=== PATIENT | female | born 1970 | race American Indian/Alaskan Native ===

== ENCOUNTER 2018-11-13 13:17 | Emergency (ER) | payer OTHER ==
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
[2018-11-13] MEDS ORDERED: IBUPROFEN PO ONE (19:57)
[2018-11-13] MEDS ORDERED: FLEXERIL PO ONE (19:57)
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
[2018-11-13 20:32] VITALS: BP 196/106
== END 2018-11-13 20:33 | disposition home or self-care (01) ==
LOC: ED 13:17
DX: S39.012A Strain of muscle, fascia and tendon of lower back, initial encounter (principal); I10 Essential (primary) hypertension; Z79.899 Other long term (current) drug therapy; Z79.1 Long term (current) use of non-steroidal anti-inflammatories (NSAID); Z90.49 Acquired absence of other specified parts of digestive tract; V89.2XXA Person injured in unspecified motor-vehicle accident, traffic, initial encounter; Y93.89 Activity, other specified; Y92.488 Other paved roadways as the place of occurrence of the external cause; Y99.8 Other external cause status
CPT/HCPCS: 72131; 99283

== ENCOUNTER 2019-02-16 19:52 | Emergency (ER) | payer SELFPAY ==
--- NOTE | 2019-02-16 21:55 | Event Note ---
ED Screening Note Date of service: 02/16/19 Time: 21:51 ED Screening Note: This initial assessment/diagnostic orders/clinical plan/treatment(s) is/are subject to change based on patients health status, clinical progression and re- assessment by fellow clinical providers in the ED. Further treatment and workup at subsequent clinical providers discretion. Patient/guardian urged not to elope from the ED as their condition may be serious if not clinically assessed and managed. 48 yo female c/o abd. pain nausea vomiting x 3 days. She reports subjective fever. Denies urinary symptoms. Hx of tubal ligation and appendectomy. Initial orders include: cbc cmp lipase ua
[2019-02-16 22:20] LABS: Basophils % (Auto) 0.4 % (0.0-1.8); Eosinophils # (Auto) 0.1 K/mm3 (0.0-0.4); Eosinophils % (Auto) 1.1 % (0.0-4.3); Hematocrit 35.3 % (30.3-42.9); Hemoglobin 11.7 gm/dl (10.1-14.3); Lymphocytes # (Auto) 1.3 K/mm3 (1.2-5.4); Lymphocytes % (Auto) 14.8 % (13.4-35.0); Mean Corpuscular HGB Conc 33 % (30-34); Mean Corpuscular Volume 94 fl (79-97); Monocytes % (Auto) 11.5 % (0.0-7.3); Platelet Count 279 K/mm3 (140-440); Red Blood Count 3.76 M/mm3 (3.65-5.03); Red Cell Distribution Width 14.3 % (13.2-15.2)
[2019-02-16 22:44] LABS: Alanine Aminotransferase 11 units/L (7-56); Albumin 3.5 g/dL (3.9-5); BUN/Creatinine Ratio 10; Blood Urea Nitrogen 7 mg/dL (7-17); Calcium 8.9 mg/dL (8.4-10.2); Hemolysis Index 22
[2019-02-16 22:55] LABS: Bacteria,Urine 2+ /HPF (Negative); Bilirubin,Urine NEG (Negative); Blood,Urine MOD (Negative); Color,Urine Yellow (Yellow); Mucus,Urine FEW /HPF; Protein,Urine <15 mg/dL mg/dL (Negative)
[2019-02-16 22:56] LABS: WBC,Urine > 182.0 /HPF (0.0-6.0)
[2019-02-17] MEDS ORDERED: cefTRIAXone/NS 1 GM/50 ML 1 GM/50 ML BAG IV ONE (00:13)
[2019-02-17] MEDS ORDERED: MORPHINE 4 MG/1 ML INJ IV ONE (00:13)
[2019-02-17] MEDS ORDERED: FAMOTIDINE 20 MG/2 ML INJ IV ONE (00:13)
[2019-02-17] MEDS ORDERED: ONDANSETRON 4 MG/2 ML INJ IV ONE (00:13)
[2019-02-17] MEDS ORDERED: SODIUM CHLORIDE 0.9% 1000 ML 1,000 ML IV ONE (00:15)
--- NOTE | 2019-02-17 02:04 | Cat Scan Report ---
CT ABDOMEN AND PELVIS WITH IV CONTRAST INDICATION: abdominal pain. COMPARISON: None available. TECHNIQUE: Axial CT images were obtained through the abdomen and pelvis after [address] scans at t his location are performed using CT dose reduction for ALARA by means of automated exposure control. FINDINGS -- ABDOMEN: Lung Bases: No acute abnormality. Liver: Normal. Gallbladder: Normal. Bile Ducts: Normal. Pancreas: Normal. Spleen: Normal. Adrenals: Normal. Right Kidney and Proximal Ureter: Abnormal enhancement pattern with significant urothelial enhancemen t throughout the right ureter.. Left Kidney and Proximal Ureter: Nonobstructive nephrolithiasis. Ill-defined hypodensities throughout much of the left mid kidney.. Stomach and Bowel: Normal. Lymph Nodes: No significant adenopathy. Aorta: No significant abnormality. IVC: Normal. Additional Findings: None. FINDINGS -- PELVIS: Urinary Bladder and Distal Ureters: Normal. Reproductive Organs: No acute abnormality. Appendix: Normal. Bowel: No acute abnormality. Diverticulosis. Free Fluid: None. Lymph Nodes: No significant adenopathy. Additional Findings: None. Skeletal System: No acute abnormality. IMPRESSION: Findings concerning for early bilateral hilar nephritis with inflammation of both ureters. No abscess appreciated at this time. Colonic diverticulosis without diverticulitis. Signer Name: Saul Tate MD Signed: 02/17/2019 1:59 AM Workstation Name: [id number]
--- NOTE | 2019-02-17 03:23 | Emergency Department Report ---
ED Abdominal Pain HPI - General Chief Complaint: Abdominal Pain Stated Complaint: N,V, LIGHT HEADED, BLOOD IN URINE, FEVER Time Seen by Provider: 02/16/19 21:49 Source: patient Mode of arrival: Ambulatory Limitations: No Limitations - History of Present Illness Initial Comments: Patient is a 48-year-old -Spanish female with a history of hypertension who presents to the ED with complaint of acute onset persistent epigastric pain that radiates to the right upper quadrant and right flank area with nausea and vomiting for the last 5 days worse in the last 2 days. Patient also complains of subjective fever and chills with lack of appetite and hematuria. Patient also complains of dysuria, urinary frequency and urgency and suprapubic pressure . Patient denies chest pain, shortness of breath, dizziness, syncope, neck pain, headache, diarrhea, vaginal discharge, low back pain and palpitation. MD Complaint: abdominal pain, flank pain (right), other (nausea and vomiting; hematuria) -: Sudden, days(s) (5) Location: RUQ, epigastric, R flank Radiation: RUQ, epigastric, R flank Migration to: no migration Severity scale (0 -10): 8 Quality: aching, sharp Consistency: constant Improves With: nothing Worsens With: vomiting Associated Symptoms: denies other symptoms, nausea, vomiting, fever, chills, anorexia. denies: diarrhea, constipation, dysuria, hematemesis, hematochezia, hematuria, other Treatments Prior to Arrival: NSAIDs - Related Data Home Medications Medication Instructions Recorded Confirmed Last Taken Ferrous Sulfate [Feosol] 325 mg PO BID 08/06/15 08/06/15 08/05/15 Losartan/Hydrochlorothiazide 1 tab PO QDAY 08/06/15 08/06/15 08/05/15 [Hyzaar 100-25 TAB] Previous Rx's Medication Instructions Recorded Last Taken Type Cyclobenzaprine HCl [Flexeril 5 MG 5 mg PO Q8HR PRN #10 tab 08/06/15 Unknown Rx TAB] Ibuprofen [Motrin] 800 mg PO Q8HR PRN #10 tablet 08/06/15 Unknown Rx Cyclobenzaprine [Flexeril] 10 mg PO QHS PRN #10 tablet 11/13/18 Unknown Rx Ibuprofen [Motrin] 600 mg PO Q8H PRN #20 tablet 08/28/19 Unknown Rx Famotidine [Pepcid] 40 mg PO DAILY #30 tablet 02/17/19 Unknown Rx Ibuprofen [Motrin] 800 mg PO Q8HR PRN #24 tablet 02/17/19 Unknown Rx Promethazine [Phenergan] 25 mg PO Q6HR PRN #24 tab 02/17/19 Unknown Rx levoFLOXacin [Levaquin TAB] 500 mg PO QDAY #10 tablet 02/17/19 Unknown Rx traMADoL [Ultram] 50 mg PO Q4HR PRN #12 tablet 02/17/19 Unknown Rx Allergies Allergy/AdvReac Type Severity Reaction Status Date / Time No Known Allergies Allergy Verified 08/06/15 00:05 ED Review of Systems ROS: Stated complaint: N,V, LIGHT HEADED, BLOOD IN URINE, FEVER Other details as noted in HPI Constitutional: denies: chills, fever Eyes: denies: eye pain, eye discharge, vision change ENT: denies: ear pain, throat pain Respiratory: denies: cough, shortness of breath, wheezing Cardiovascular: denies: chest pain, palpitations Endocrine: no symptoms reported Gastrointestinal: abdominal pain (right flank, right upper quadrant and epigastric pain), nausea, vomiting. denies: diarrhea Genitourinary: denies: urgency, dysuria, frequency, discharge Musculoskeletal: back pain. 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) Hx Heart Attack/AMI: Yes (x1) Additional medical history: Iron Deficiency Anemia - Surgical History Past Surgical History?: Yes Hx Cholecystectomy: Yes Hx Appendectomy: Yes Additional Surgical History: HYST, Cardiac Cath, Colonoscopy, Fibroid Removal, Abdominal surgery with Mesh placement - Social History Smoking Status: Never Smoker Substance Use Type: None - Medications Home Medications: Home Medications Medication Instructions Recorded Confirmed Last Taken Type Cyclobenzaprine HCl [Flexeril 5 MG 5 mg PO Q8HR PRN #10 tab 08/06/15 Unknown Rx TAB] Ferrous Sulfate [Feosol] 325 mg PO BID 08/06/15 08/06/15 08/05/15 History Ibuprofen [Motrin] 800 mg PO Q8HR PRN #10 tablet 08/06/15 Unknown Rx Losartan/Hydrochlorothiazide 1 tab PO QDAY 08/06/15 08/06/15 08/05/15 History [Hyzaar 100-25 TAB] Cyclobenzaprine [Flexeril] 10 mg PO QHS PRN #10 tablet 11/13/18 Unknown Rx Ibuprofen [Motrin] 600 mg PO Q8H PRN #20 tablet 11/13/18 Unknown Rx Famotidine [Pepcid] 40 mg PO DAILY #30 tablet 02/17/19 Unknown Rx Ibuprofen [Motrin] 800 mg PO Q8HR PRN #24 tablet 02/17/19 Unknown Rx Promethazine [Phenergan] 25 mg PO Q6HR PRN #24 tab 02/17/19 Unknown Rx levoFLOXacin [Levaquin TAB] 500 mg PO QDAY #10 tablet 02/17/19 Unknown Rx traMADoL [Ultram] 50 mg PO Q4HR PRN #12 tablet 02/17/19 Unknown Rx ED Physical Exam - General Limitations: No Limitations General appearance: alert, in no apparent distress - Head Head exam: Present: atraumatic, normocephalic, normal inspection - Eye Eye exam: Present: normal appearance, PERRL, EOMI Pupils: Present: normal accommodation - ENT ENT exam: Present: normal exam, normal orophraynx, mucous membranes moist, TM's normal bilaterally, normal external ear exam - Neck Neck exam: Present: normal inspection, full ROM. Absent: tenderness - Respiratory Respiratory exam: Present: normal lung sounds bilaterally. Absent: respiratory distress, wheezes, chest wall tenderness, accessory muscle use, decreased breath sounds - Cardiovascular Cardiovascular Exam: Present: regular rate, normal rhythm, normal heart sounds. Absent: systolic murmur, diastolic murmur, rubs, gallop - GI/Abdominal GI/Abdominal exam: Present: soft, tenderness (probable epigastric, right upper quadrant and right flank tenderness), normal bowel sounds. Absent: distended, guarding, rebound, hyperactive bowel sounds, hypoactive bowel sounds - Extremities Exam Extremities exam: Present: normal inspection, full ROM, normal capillary refill - Back Exam Back exam: Present: normal inspection, full ROM, tenderness, muscle spasm, paraspinal tenderness (palpable lumbosacral paraspinal musculoskeletal tenderness) - Neurological Exam Neurological exam: Present: alert, oriented X3, CN II-XII intact, normal gait, reflexes normal - Psychiatric Psychiatric exam: Present: normal affect, normal mood, anxious - Skin Skin exam: Present: warm, dry, intact, normal color. Absent: rash ED Course Vital Signs 02/16/19 02/16/19 19:57 21:49 Temperature 99.0 F 97.9 F Pulse Rate 96 H 95 H Respiratory 18 20 Rate Blood Pressure 149/95 149/95 O2 Sat by Pulse 99 99 Oximetry - Reevaluation(s) Reevaluation #1: 02/17/19 03:28 This is a 48-year-old female who presented to the ED with acute onset persistent nausea and vomiting, epigastric and right upper quadrant pain that radiates to the right flank for 5 days worse in the last 2 days. In the ED, patient is alert and oriented 3 and is not in distress but appears to be uncomfortable during the physical exam. Lab test results were reviewed and show no acute process or abnormality except for urinalyses that showed significant urinary tract infection with WBCs >182, and nitrite positive. Patient was treated in the ED for pain, for nausea and vomiting, and also given normal saline 1 L bolus and Rocephin 1 g IV times one. Abdomen pelvis CT scan with contrast showed no acute process except for abnormal enhancement pattern with significant urothelial enhancement throughout the right ureter. These findings concerning for early bilateral hilar nephritis with inflammation of both ureters. No abscess appreciated at this time. Colonic diverticulosis without diverticulitis. On reevaluation, patient's pain is well controlled with medications. Patient feeling better now discharged home on pain medications, antiemetics and antibiotics. Patient was advised to follow-up with her primary care physician in 5-7 days for reevaluation or return to the ED immediately if symptoms get wor se. ED Medical Decision Making - Lab Data Result diagrams: 02/16/19 22:02 02/16/19 22:02 - Radiology Data Radiology results: report reviewed, image reviewed [facility] [address] [place] [address] Cat Scan Report Signed Patient: DOM KNIGHT Sharon#: [id number] : 1970 Acct:[id number] Age/Sex: 48 / F ADM Date: 02/16/19 Loc: ED Attending Dr: Ordering Physician: MARY SINGH Date of Service: 02/17/19 Procedure(s): CT abdomen pelvis w con Accession Number(s): [id number] cc: AMRY SINGH CT ABDOMEN AND PELVIS WITH IV CONTRAST INDICATION: abdominal pain. COMPARISON: None available. TECHNIQUE: Axial CT images were obtained through the abdomen and pelvis after [address] scans at this location are performed using CT dose reduction for ALARA by means of automated exposure control. FINDINGS -- ABDOMEN: Lung Bases: No acute abnormality. Liver: Normal. Gallbladder: Normal. Bile Ducts: Normal. Pancreas: Normal. Spleen: Normal. Adrenals: Normal. Right Kidney and Proximal Ureter: Abnormal enhancement pattern with significant urothelial enhancement throughout the right ureter.. Left Kidney and Proximal Ureter: Nonobstructive nephrolithiasis. Ill-defined hypodensities throughout much of the left mid kidney.. Stomach and Bowel: Normal. Lymph Nodes: No significant adenopathy. Aorta: No significant abnormality. IVC: Normal. Additional Findings: None. FINDINGS -- PELVIS: Urinary Bladder and Distal Ureters: Normal. Reproductive Organs: No acute abnormality. Appendix: Normal. Bowel: No acute abnormality. Diverticulosis. Free Fluid: None. Lymph Nodes: No significant adenopathy. Additional Findings: None. Skeletal System: No acute abnormality. IMPRESSION: Findings concerning for early bilateral hilar nephritis with inflammation of both ureters. No abscess appreciated at this time. Colonic diverticulosis without diverticulitis. Signer Name: Saul Tate MD Signed: 02/17/2019 1:59 AM Workstation Name: [id number] Transcribed By: Dictated By: Saul Tate MD Electronically Authenticated By: Saul Tate MD Signed Date/Time: 02/17/19 0159 - Medical Decision Making This is a 48-year-old female who presented to the ED with acute onset persistent nausea and vomiting, epigastric and right upper quadrant pain that radiates to the right flank for 5 days worse in the last 2 days. In the ED, patient is alert and oriented 3 and is not in distress but appears to be uncomfortable during the physical exam. Lab test results were reviewed and show no acute process or abnormality except for urinalyses that showed significant urinary tract infection with WBCs >182, and nitrite positive. Patient was treated in the ED for pain, for nausea and vomiting, and also given normal saline 1 L bolus and Rocephin 1 g IV times one. Abdomen pelvis CT scan with contrast showed no acute process except for abnormal enhancement pattern with significant urothelial enhancement throughout the right ureter. These findings concerning for early bilateral hilar nephritis with inflammation of both ureters. No abscess appreciated at this time. Colonic diverticulosis without diverticulitis. On reevaluation, patient's pain is well controlled with medications. Patient feeling better now discharged home on pain medications, antiemetics and antibiotics. Patient was advised to follow-up with her primary care physician in 5-7 days for reevaluation or return to the ED immediately if symptoms get wors - Differential Diagnosis Pyelonephritis; UTI; Cystitis; Kidney stones; Colitis Critical care attestation.: If time is entered above; I have spent that time in minutes in the direct care of this critically ill patient, excluding procedure time. ED Disposition Clinical Impression: Acute pyelonephritis, Acute urinary tract infection, Nausea and vomiting in adult Abdominal pain Qualifiers: Abdominal location: right upper quadrant Qualified Code(s): R10.11 - Right upper quadrant pain Disposition: DC- TO HOME OR SELFCARE Is pt being admited?: No Does the pt Need Aspirin: No Condition: Stable Instructions: Abdominal Pain (ED), Urinary Tract Infection in Women (ED), Acute Pyelonephritis (ED), Acute Nausea and Vomiting (ED) Additional Instructions: Take medication with food, drink plenty of fluids and follow-up with your primary care physician in 5-7 days for reevaluation. Return to the ED immediately if symptoms get worse. Prescriptions: levoFLOXacin [Levaquin TAB] 500 mg PO QDAY #10 tablet Ibuprofen [Motrin] 800 mg PO Q8HR PRN #24 tablet PRN Reason: Pain , Severe (7-10) Famotidine [Pepcid] 40 mg PO DAILY #30 tablet Promethazine [Phenergan] 25 mg PO Q6HR PRN #24 tab PRN Reason: Nausea traMADoL [Ultram] 50 mg PO Q4HR PRN #12 tablet PRN Reason: Pain Referrals: PRIMARY CARE, [Primary Care Provider] - 3-5 Days Forms: Work/School Release Form(ED) Time of Disposition: 03:20 Print Language: TRISTANIAN
[2019-02-17 04:34] VITALS: BP 141/94
== END 2019-02-17 04:27 | disposition home or self-care (01) ==
LOC: ED 19:52
DX: N39.0 Urinary tract infection, site not specified (principal); N10 Acute pyelonephritis; I10 Essential (primary) hypertension; I25.2 Old myocardial infarction; Z86.73 Personal history of transient ischemic attack (TIA), and cerebral infarction without residual deficits; Z90.49 Acquired absence of other specified parts of digestive tract; Z90.89 Acquired absence of other organs; Z98.890 Other specified postprocedural states; Z79.899 Other long term (current) drug therapy
CPT/HCPCS: 36415; 74177; 80053; 81001; 83690; 84484; 85025; 96365; 96375; 99284; J0696; J2405; J7030; Q9967; J2270